=== PATIENT | male | born 1990 | race Caucasian/White ===

== ENCOUNTER 2022-01-12 11:21 | Emergency (ER) | payer BC ==
[~2022-01-12] VITALS: Ht 177 cm; Wt 113.3 kg
[~2022-01-12 11:21] MED LIST: AGM875T PO; HYDR-3720 PO; SULF1TAB38 PO
--- NOTE | 2022-01-12 11:46 | ED Lower Extremity ---
General Chief Complaint: Lower Extremity Stated Complaint: L LEG PAIN Nursing Triage Note: patient states noticed a "knot" behind his left knee last week, two days ago left calf red and swollen, today pain behind left knee Source: patient Exam Limitations: no limitations History of Present Illness Date Seen by Provider: January 12, 2022 Time Seen by Provider: 11:30 Initial Comments Patient is a 31-year-old male who presents to the emergency department with a chief complaint of left knee, leg pain discomfort and redness. He noticed a "knot" behind his left knee on the medial aspect of the popliteal fossa. He states it seemed to have gone away and a couple of days ago he noticed expanding redness/erythema over the calf up into the medial aspect of his thigh. He states it hurts to move his leg at the knee joint. He denies any previous history of blood clots. No family history of blood clots. He has had no known fever chills cough, shortness of breath, nausea or vomiting. He is not lightheaded or dizzy. He has had no recent surgeries, no recent prolonged immobility. He does smoke cigarettes. He took 800 mg of ibuprofen for the symptoms last night and went to the urgent care this morning and they sent him here for an ultrasound. He denies any known trauma. 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 The last time he saw Has been about 12 years ago All other review of systems reviewed and negative except as stated. Onset: last week Severity: moderate Pain/Injury Location: left leg Method of Injury: unknown Modifying Factors: Worse With Movement Allergies and Home Medications Allergies Coded Allergies: No Known Drug Allergies (Verified , 05/01/09) Patient Home Medication List Home Medication List Reviewed: Yes Amoxicillin/Clavulanate K (Augmentin 875-125 Tablet) 1 Tab Tablet, 1 TAB PO BID Prescribed by: RODRIGO HUDDLESTON on 04/29/09 021 Hydrocodone Bit/Acetaminophen (Lortab 10-325 Mg) 1 Ea Tab, 1 EA PO Q 4 - 6 HRS PRN Prescribed by: RODRIGO HUDDLESTON on 04/29/09 021 Trimethoprim/Sulfamethoxazole (Bactrim Ds) 1 Ea Tablet, 1 EA PO BID Prescribed by: RODRIGO HUDDLESTON on 04/30/09 0137 Review of Systems Constitutional: see HPI EENTM: no symptoms reported Respiratory: no symptoms reported Cardiovascular: no symptoms reported Gastrointestinal: no symptoms reported Genitourinary: no symptoms reported Musculoskeletal: muscle stiffness, other (leg pain) Skin: rash (left calf) All Other Systems Reviewed Negative Unless Noted: Yes Past Ksmwmcn-Cgagva-Giwafy Hx Patient Social History Tobacco Use?: Yes Tobacco type used: Cigarettes Smoking Status: Current Everyday Smoker Substance use?: No Past Medical History Reproductive Disorders: No Physical Exam Vital Signs Vital Signs - First Documented 01/12/22 11:36 Temp 35.8 Pulse 96 Resp 18 B/P (MAP) 137/79 (98) Pulse Ox 98 O2 Delivery Room Air Capillary Refill : Less Than 3 Seconds Height, Weight, BMI Height: '" Weight: lbs. oz. kg; 36.00 BMI Method: General Appearance: WD/WN, no apparent distress HEENT: PERRL/EOMI Neck: full range of motion Cardiovascular: regular rate, rhythm (HR 90's) Respiratory: lungs clear, normal breath sounds, no respiratory distress, no accessory muscle use Gastrointestinal: normal bowel sounds, non tender, soft Hips: bilateral hip non-tender, bilateral hip normal inspection, bilateral hip normal range of motion, bilateral hip no evidence of injury Legs: bilateral leg normal range of motion, bilateral leg no evidence of injury, bilateral leg pain, bilateral leg soft tissue tenderness, bilateral leg swelling Knees: bilateral knee soft tissue tenderness (Soft tissue tenderness in the popliteal fossa on the) Ankles: bilateral ankle non-tender, bilateral ankle normal inspection, bi lateral ankle normal range of motion, bilateral ankle no evidence of injury Feet: bilateral foot non-tender, bilateral foot normal inspection, bilateral foot normal range of motion, bilateral foot no evidence of injury Neurologic/Tendon: normal sensation, normal motor functions, normal tendon functions Neurologic/Psychiatric: alert, normal mood/affect, oriented x 3 Skin: normal color, warm/dry, other (Significant erythema noted over the knee mid portion of the muscle belly of the left calf extending proximally into the popliteal fossa and medial thigh, no open wounds, drainage) Progress/Results/Core Measures Results/Orders Lab Results Laboratory Tests Test 01/12/22 11:45 Range/Units White Blood Count 12.8 H 4.3-11.0 10^3/uL Red Blood Count 5.01 4.30-5.52 10^6/uL Hemoglobin 15.8 13.3-17.7 g/dL Hematocrit 44 40-54 % Mean Corpuscular Volume 88 80-99 fL Mean Corpuscular Hemoglobin 32 25-34 pg Mean Corpuscular Hemoglobin Concent 36 32-36 g/dL Red Cell Distribution Width 12.5 10.0-14.5 % Platelet Count 258 130-400 10^3/uL Mean Platelet Volume 9.2 9.0-12.2 fL Immature Granulocyte % (Auto) 0 % Neutrophils (%) (Auto) 68 42-75 % Lymphocytes (%) (Auto) 19 12-44 % Monocytes (%) (Auto) 9 0-12 % Eosinophils (%) (Auto) 3 0-10 % Basophils (%) (Auto) 1 0-10 % Neutrophils # (Auto) 8.7 H 1.8-7.8 10^3/uL Lymphocytes # (Auto) 2.4 1.0-4.0 10^3/uL Monocytes # (Auto) 1.2 H 0.0-1.0 10^3/uL Eosinophils # (Auto) 0.4 H 0.0-0.3 10^3/uL Basophils # (Auto) 0.1 0.0-0.1 10^3/uL Immature Granulocyte # (Auto) 0.0 0.0-0.1 10^3/uL Sodium Level 139 135-145 MMOL/L Potassium Level 4.1 3.6-5.0 MMOL/L Chloride Level 105 98-107 MMOL/L Carbon Dioxide Level 22 21-32 MMOL/L Anion Gap 12 5-14 MMOL/L Blood Urea Nitrogen 11 7-18 MG/DL Creatinine 0.94 0.60-1.30 MG/DL Estimat Glomerular Filtration Rate 112 BUN/Creatinine Ratio 12 Glucose Level 99 70-105 MG/DL Calcium Level 9.3 8.5-10.1 MG/DL Corrected Calcium 9.1 8.5-10.1 MG/DL Total Bilirubin 0.7 0.1-1.0 MG/DL Aspartate Amino Transf (AST/SGOT) 14 5-34 U/L Alanine Aminotransferase (ALT/SGPT) 29 0-55 U/L Alkaline Phosphatase 94 40-136 U/L Total Protein 7.2 6.4-8.2 GM/DL Albumin 4.3 3.2-4.5 GM/DL My Orders Orders - JUDITH GAYLE MD Ed Iv/Invasive Line Start (01/12/22 11:40) Cbc With Automated Diff (01/12/22 11:40) Comprehensive Metabolic Panel (01/12/22 11:40) Blood Culture (01/12/22 11:40) Us Venous Lower Ext Lt (01/12/22 11:48) Blood Culture (01/12/22 12:15) Cefazolin 2 Gm Iv Premixed (Ancef 2 Gm P (01/12/22 13:00) Vital Signs/I&O 01/12/22 11:36 Temp 35.8 Pulse 96 Resp 18 B/P (MAP) 137/79 (98) Pulse Ox 98 O2 Delivery Room Air Blood Pressure Mean: 98 Progress Progress Note : Time: 13:12 Progress Note Patient's labs are reassuring. His DVT study is negative for clot. His vital signs of been stable. We will start him on some outpatient antibiotics with return precautions. He declined getting IV antibiotics in the department today. He is comfortable with the plan of care. All questions have been sought and answered. Departure Impression Primary Impression: Cellulitis Qualified Codes: L03.116 - Cellulitis of left lower limb Disposition: HOME, SELF-CARE Condition: Stable Departure-Patient Inst. Decision time for Depature: 13:13 Referrals: [facility] [place]YSIC[place] (PCP) Primary Care Physician Patient Instructions: Cellulitis (Skin Infection), Adult (DC) Add. Discharge Instructions: Keep the leg elevated to lessen swelling. [id number] ibuprofen, 600 mg which is 3 tablets every 6 hours with food as needed for pain. You can alternate with extra strength Tylenol. Start the antibiotics as soon as you get them. You will need to take 1 tablet 4 times daily for 10 days for this infection. If you develop worsening redness, swelling, high fevers nausea vomiting or any other emergent concerning symptoms please come back to the emergency room for reevaluation. Scripts Cephalexin (Cephalexin) 500 Mg Tablet 500 MG PO QID for 10 Days, #40 TAB Prov: JUDITH GAYLE MD 01/12/22 JUDITH GAYLE MD January 12, 2022 11:46
[2022-01-12 11:54] LABS: BASOPHILS # (AUTO) 0.1 10^3/uL (0.0-0.1); BASOPHILS % (AUTO) 1 % (0-10); EOSINOPHILS # (AUTO) 0.4 10^3/uL (0.0-0.3); EOSINOPHILS % (AUTO) 3 % (0-10); HEMATOCRIT 44 % (40-54); HEMOGLOBIN 15.8 g/dL (13.3-17.7); LYMPHOCYTES # (AUTO) 2.4 10^3/uL (1.0-4.0); LYMPHOCYTES % (AUTO) 19 % (12-44); MEAN CORPUSCULAR HEMOGLOBIN 32 pg (25-34); MEAN CORPUSCULAR HGB CONC 36 g/dL (32-36); MEAN CORPUSCULAR VOLUME 88 fL (80-99); MEAN PLATELET VOLUME 9.2 fL (9.0-12.2); MONOCYTES # (AUTO) 1.2 10^3/uL (0.0-1.0); MONOCYTES % (AUTO) 9 % (0-12); NEUTROPHILS # (AUTO) 8.7 10^3/uL (1.8-7.8); NEUTROPHILS % (AUTO) 68 % (42-75); PLATELET COUNT 258 10^3/uL (130-400); WHITE BLOOD COUNT 12.8 10^3/uL (4.3-11.0)
[2022-01-12 12:09] LABS: ALBUMIN 4.3 GM/DL (3.2-4.5); POTASSIUM 4.1 MMOL/L (3.6-5.0)
[2022-01-12 12:10] LABS: CALCIUM 9.3 MG/DL (8.5-10.1)
[2022-01-12 12:11] LABS: TOTAL PROTEIN 7.2 GM/DL (6.4-8.2)
[2022-01-12 12:13] LABS: BILIRUBIN,TOTAL 0.7 MG/DL (0.1-1.0)
[2022-01-12 12:15] LABS: CREATININE SERUM 0.94 MG/DL (0.60-1.30)
[2022-01-12] MEDS ORDERED: ceFAZolin 2 GM IV Premixed 50 ML IV ONE (13:00)
--- NOTE | 2022-01-12 13:13 | Diagnostic Imaging Report ---
Clinical indications: Patient with left pain and redness of calf. Comparison: None Procedure: Ultrasound venous ultrasound of the left lower extremity with multiple real-time grayscale images were obtained in various projections. Additional spectral analysis and color Doppler duple images were also obtained. Findings: Left groin lymph node, with fatty hilum, is seen measuring 2.8 cm x 1.6 cm x 1.6 cm. The deep venous system is well visualized and is easily compressible. There is no evidence of deep venous thrombosis, valvular incompetence, or significant collateral circulation. There is no fluid collection in the popliteal fossa region. Impression: There is no ultrasound Doppler evidence of deep venous thrombosis in the left lower extremity. Dictated by: Dictated on workstation # [id number]
[2022-01-12] MEDS ORDERED: CEPH500T PO (13:14)
[2022-01-12 13:19] VITALS: BP 137/79
== END 2022-01-12 13:20 | disposition home or self-care (01) ==
LOC: EDUNIT# 11:21 → ER 11:22
DX: L03.116 Cellulitis of left lower limb (principal); F17.210 Nicotine dependence, cigarettes, uncomplicated
CPT/HCPCS: 36415; 80053; 85025; 87040